=== PATIENT | male | born 1985 | race African-American/Black ===

== ENCOUNTER 2020-12-14 09:49 | Inpatient (IN) | payer OTHER ==
[2020-12-14 10:58] VITALS: BMI 21.1
[2020-12-14] MEDS ORDERED: BISMUTH SUBSALICYLATE 262 MG/15 ML BTL PO PRN (11:48)
[2020-12-14] MEDS ORDERED: IBUPROFEN 400 MG TABLET (FP) PO PRN (11:48)
[2020-12-14] MEDS ORDERED: MAGNESIUM HYDROX 2400MG/30ML ORAL SUSPENSION 30 ML CUP PO PRN (11:48)
[2020-12-14] MEDS ORDERED: METHOCARBAMOL 500 MG TABLET PO PRN (11:48)
[2020-12-14] MEDS ORDERED: MENTHOL/PHENOL 1 EACH UD MM PRN (11:48)
[2020-12-14] MEDS ORDERED: ONDANSETRON *ODT* 4 MG TABLET SL PRN (11:48)
[2020-12-14] MEDS ORDERED: MAGNESIUM CITRATE 300 ML BOTTLE PO PRN (11:48)
[2020-12-14] MEDS ORDERED: MAG HYDROX/AL HYDROX/SIMETH 30 ML UNIT-DOSE CUP PO PRN (11:48)
[2020-12-14] MEDS ORDERED: NICOTINE POLACRILEX 2 MG GUM BUC PRN (11:48)
[2020-12-14] MEDS ORDERED: ACETAMINOPHEN 325 MG TABLET (FP) PO PRN ×2 (11:48)
[2020-12-14] MEDS: LORazepam 1 MG TABLET PO PRN (13:23)
[2020-12-14] MEDS: NICOTINE 7 MG/24 HOURS TOPICAL PATCH TD SCH (13:24)
[2020-12-14] MEDS: HYDROCORTISONE 0.5% TOPICAL CREAM 30 GM TUBE TP SCH ×2 (15:14→22:39)
[2020-12-14] MEDS: hydrOXYzine PAMOATE 25 MG CAPSULE (FP) PO SCH ×3 (15:14→22:40)
[2020-12-14 16:04] LABS: HEMOGLOBIN 13.6 GM/dL (11.7-16.9); MCH 36.1 pg (25.7-33.7); MEAN CELL VOLUME 103.4 fl (80-96); MEAN PLT VOLUME 7.6 fl (7.5-11.1); PLATELET COUNT 161 K/MM3 (134-434); RBC 3.77 M/mm3 (4.00-5.60); RDW 13.2 % (11.9-15.9); WHITE BLOOD COUNT 3.5 K/mm3 (4.0-10.0)
[2020-12-14 16:26] LABS: ALBUMIN 3.9 g/dl (3.4-5.0); CALCIUM 7.6 mg/dL (8.5-10.1)
[2020-12-14 16:30] LABS: CREATININE 0.8 mg/dL (0.55-1.3)
[2020-12-14 16:31] LABS: BILIRUBIN,TOTAL 1.2 mg/dL (0.2-1)
[2020-12-14 16:32] LABS: TOT PROT 7.8 g/dl (6.4-8.2)
[2020-12-14] MEDS: LORazepam 2 MG TABLET PO SCH ×2 (17:51→22:40)
[2020-12-14] MEDS ORDERED: POTASSIUM CHLORIDE TABS 20 MEQ TABLET.ER (FP) PO ONE (21:20)
[2020-12-14] MEDS: THIAMINE HCL 100 MG TABLET (FP) PO SCH (22:40)
[2020-12-14] MEDS: MELATONIN 5 MG TABLETS PO SCH (22:40)
[2020-12-15] MEDS: LORazepam 2 MG TABLET PO SCH ×4 (05:51→22:10)
[2020-12-15] MEDS: hydrOXYzine PAMOATE 25 MG CAPSULE (FP) PO SCH ×2 (05:51→10:26)
[2020-12-15] MEDS: LORazepam 1 MG TABLET PO PRN (08:53)
[2020-12-15] MEDS: HYDROCORTISONE 0.5% TOPICAL CREAM 30 GM TUBE TP SCH ×2 (10:29→22:10)
[2020-12-15] MEDS: NICOTINE 7 MG/24 HOURS TOPICAL PATCH TD SCH (10:29)
[2020-12-15] MEDS: PRENATAL VITAMINS W/ FOLIC ACID TABLET (FP) PO SCH (10:29)
[2020-12-15] MEDS: COLLOIDAL OATMEAL 1 BAR EACH TP SCH (10:29)
[2020-12-15] MEDS: hydrOXYzine PAMOATE 25 MG CAPSULE (FP) PO PRN (22:10)
[2020-12-15] MEDS: THIAMINE HCL 100 MG TABLET (FP) PO SCH (22:10)
[2020-12-15] MEDS: MELATONIN 5 MG TABLETS PO SCH (22:10)
[2020-12-16] MEDS: LORazepam 1 MG TABLET PO SCH ×2 (05:32→10:05)
[2020-12-16 09:33] VITALS: BP 133/86; PULSE 94; TEMP 98
[2020-12-16] MEDS ORDERED: POTASSIUM CHLORIDE TABS 20 MEQ TABLET.ER (FP) PO SCH (10:00)
[2020-12-16] MEDS: COLLOIDAL OATMEAL 1 BAR EACH TP SCH (10:04)
[2020-12-16] MEDS: HYDROCORTISONE 0.5% TOPICAL CREAM 30 GM TUBE TP SCH (10:04)
[2020-12-16] MEDS: PRENATAL VITAMINS W/ FOLIC ACID TABLET (FP) PO SCH (10:05)
[2020-12-16] MEDS: NICOTINE 7 MG/24 HOURS TOPICAL PATCH TD SCH (10:05)
[2020-12-16] MEDS: hydrOXYzine PAMOATE 25 MG CAPSULE (FP) PO PRN (10:06)
[2020-12-16 10:29] LABS: POTASSIUM 3.7 mmol/L (3.5-5.1)
[2020-12-16] MEDS ORDERED: levETIRAcetam 250 MG TABLET PO SCH (10:30)
[2020-12-16 10:37] LABS: ALBUMIN 3.5 g/dl (3.4-5.0); CALCIUM 8.9 mg/dL (8.5-10.1)
[2020-12-16 10:38] LABS: BLOOD UREA NITROGEN 6.4 mg/dL (7-18)
[2020-12-16 10:41] LABS: CREATININE 0.7 mg/dL (0.55-1.3)
[2020-12-16 10:42] LABS: BILIRUBIN,TOTAL 1.8 mg/dL (0.2-1); TOT PROT 6.8 g/dl (6.4-8.2)
[2020-12-16 10:46] LABS: BASO % 0.5 % (0-2.0); EOS % 1.3 % (0-4.5); HEMATOCRIT 34.3 % (35.4-49); HEMOGLOBIN 11.9 GM/dL (11.7-16.9); LYMPH % 35.1 % (8-40); MCHC 34.7 g/dl (32.0-35.9); MEAN CELL VOLUME 103.6 fl (80-96); MEAN PLT VOLUME 8.2 fl (7.5-11.1); MONO % 16.6 % (3.8-10.2); NEUT % 46.5 % (42.8-82.8); PLATELET COUNT 143 K/MM3 (134-434); RBC 3.31 M/mm3 (4.00-5.60); RDW 12.8 % (11.9-15.9); WHITE BLOOD COUNT 3.1 K/mm3 (4.0-10.0)
[2020-12-17] MEDS ORDERED: LORazepam 0.5 MG TABLET PO PRN
[2020-12-17] MEDS ORDERED: LORazepam 0.5 MG TABLET PO SCH (05:00)
[2020-12-18] MEDS ORDERED: LORazepam 0.5 MG TABLET PO ONE (05:00)
== END 2020-12-16 11:30 | disposition left against medical advice (07) | DRG 770 ==
LOC: YASAS 09:49 → Y3N 11:49
PROVIDERS: ADMIT Allergy & Immunology; ATTEND Allergy & Immunology
PROC: HZ2ZZZZ Detoxification Services for Substance Abuse Treatment (ICD-10-PCS; principal; 2020-12-14)
DX: F10.230 Alcohol dependence with withdrawal, uncomplicated (principal); F10.220 Alcohol dependence with intoxication, uncomplicated; F17.210 Nicotine dependence, cigarettes, uncomplicated; R94.5 Abnormal results of liver function studies; G40.509 Epileptic seizures related to external causes, not intractable, without status epilepticus
CPT/HCPCS: 36415; 80053; 80177; 85025; 85027; 86780; C9803; U0003